=== PATIENT | male | born 1970 | race Caucasian/White ===

== ENCOUNTER 2016-11-28 10:05 | Emergency (ER) ==
[2016-11-28 10:22] VITALS: TEMP 97.5; BMI 33.9
[2016-11-28] MEDS: LIDOCAINE 1 % AMP 5 ML (SUTURES) SUBCUT STA (10:30)
--- NOTE | 2016-11-28 10:39 | ED.PDOC ---
General ED Provider: Dr. JESENIA WILL Chief Complaint: Non-specific Complaint Stated Complaint: fish hook Time Seen by Physician: 10:10 Mode of Arrival: Walk-In Information Source: Patient Exam Limitations: No limitations Primary Care Provider: YOANNA OLSON Nursing and Triage Documentation Reviewed and Agree: Yes Skin Complaint Exam - Skin/Soft Tissue Complaint/Exam Onset/Duration: fish hook righ cheek Symptoms Are: Still present Timing: Constant Initial Severity: Mild Current Severity: Mild Aggravating: Reports: None Alleviating: Reports: None Associated Signs and Symptoms: Denies: Fever, Chills, Itching, Drainage, Bruising, Tenderness, Red streaks, Joint swelling Review of Systems - Review Of Systems Constitutional: Reports: No symptoms Eyes: Reports: No symptoms Ears, Nose, Mouth, Throat: Reports: No symptoms Respiratory: Reports: No symptoms Cardiac: Reports: No symptoms GI: Reports: No symptoms : Reports: No symptoms Musculoskeletal: Reports: No symptoms Skin: Reports: No symptoms Neurological: Reports: No symptoms Endocrine: Reports: No symptoms Hematologic/Lymphatic: Reports: No symptoms All Other Systems: Reviewed and Negative Past Medical History - Past Medical History Previously Healthy: Yes Endocrine: Reports: None Cardiovascular: Reports: None Respiratory: Reports: None Hematological: Reports: None Gastrointestinal: Reports: None Genitourinary: Reports: None Neuro/Psych: Reports: None Musculoskeletal: Reports: None Cancer: Reports: None - Surgical History General Surgical History: Reports: None - Family History Family History: Reports: None - Social History Smoking Status: Former smoker Hx Substance Use: No Alcohol Screening: Occasionally - Immunizations Tetanus Shot up to Date: No Physical Exam - Physical Exam Appearance: Well-appearing, No pain distress, Well-nourished Eyes: EMA, EOMI, Conjunctiva clear ENT: Ears normal (fish hook right cheek) Respiratory: Airway patent, Breath sounds clear, Breath sounds equal, Respirations nonlabored Cardiovascular: RRR, Pulses normal, No rub, No murmur GI/: Soft, Nontender, No masses, Bowel sounds normal, No Organomegaly Musculoskeletal: Normal strength, ROM intact, No edema, No calf tenderness Skin: Warm, Dry, Normal color Neurological: Sensation intact, Motor intact, Reflexes intact, Cranial nerves intact, Alert, Oriented Psychiatric: Affect appropriate, Mood appropriate Critical Care Note - Critical Care Note Total Time (mins): 0 Course - Course Orders, Labs, Meds: Orders Category Date Time Status Lidocaine HCl/Pf [Lidocaine 1 % Amp 5 ml (Sutures)] MEDS 11/28/16 10:25 Stat 5 ml SUBCUT ONCE STA Tetanus, Diphtheria Tox,Adult [Tetanus Diphtheria MEDS 11/28/16 10:36 Once Toxoids] 0.5 ml IM .ONCE ONE Medications Generic Name Dose Route Start Last Admin Trade Name Freq PRN Reason Stop Dose Admin Tetanus/Diphtheria Toxoids 0.5 ml 11/28/16 10:36 Tetanus Diphtheria Toxoids IM 11/28/16 10:37 .ONCE ONE Discontinued Medications Generic Name Dose Route Start Last Admin Trade Name Freq PRN Reason Stop Dose Admin Lidocaine HCl 5 ml 11/28/16 10:25 11/28/16 10:30 Lidocaine 1 % Amp 5 Ml (Sutures) SUBCUT 11/28/16 10:26 5 ml ONCE STA Administration Vital Signs: Temp Pulse Resp BP Pulse Ox 11/28/16 10:07 97.5 F L 106 H 16 198/123 H 97 Departure - Departure Time of Disposition: 10:38 Disposition: HOME SELF-CARE Discharge Problem: Fish hook injury of cheek Qualifiers: Encounter type: initial encounter Qualifier Code: (S09.93XA) Unspecified injury of face, initial encounter Instructions: Puncture Wound (ED) Condition: Good Pt referred to PMD for follow-up: Yes Additional Instructions: Please call your Family Physician as soon as possible to schedule a follow-up appointment. Allergies/Adverse Reactions: Allergies No Known Allergies Allergy (Unverified 11/28/16 10:11) Home Medications: Ambulatory Orders Allopurinol 100 mg PO DAILY 11/28/16 Amlodipine Besylate [Norvasc] 5 mg PO DAILY 11/28/16 Hydrochlorothiazide 12.5 mg PO DAILY 11/28/16
[2016-11-28] MEDS: TETANUS DIPHTHERIA TOXOIDS IM ONE (10:40)
[2016-11-28 12:45] VITALS: BP 170/100
== END 2016-11-28 10:57 | disposition home or self-care (01) ==
LOC: ED 10:05
DX: S01.441A Puncture wound with foreign body of right cheek and temporomandibular area, initial encounter (principal)
CPT/HCPCS: 90471; 99283